=== PATIENT | female | born 1995 ===

== ENCOUNTER 2021-11-30 11:30 | Inpatient (IN) | payer OTHER ==
[~2021-11-30] VITALS: Ht 154.9 cm; Wt 52.6 kg
[2021-11-30] MEDS ORDERED: PRENATAL DHA200 MG PO (12:03)
[2021-11-30] MEDS ORDERED: PROGESTERONE200 MG PO (12:05)
== END 2021-12-01 12:29 | disposition home or self-care (01) | DRG 832 ==
LOC: LDR 11:30 → O/R 12-01 11:15 → LDR 12-01 11:16
PROVIDERS: ADMIT Obstetrics & Gynecology; ATTEND Obstetrics & Gynecology
PROC: 4A1HXCZ Monitoring of Products of Conception, Cardiac Rate, External Approach (ICD-10-PCS; principal; 2021-11-30)
PROC: BY4FZZZ Ultrasonography of Third Trimester, Single Fetus (ICD-10-PCS; 2021-11-30)
DX: O60.03 Preterm labor without delivery, third trimester (principal); O26.873 Cervical shortening, third trimester; O26.843 Uterine size-date discrepancy, third trimester; O34.211 Maternal care for low transverse scar from previous cesarean delivery; Z3A.30 30 weeks gestation of pregnancy; Z20.822 Contact with and (suspected) exposure to COVID-19